=== PATIENT | female | born 1970 | race Caucasian/White ===

== ENCOUNTER → 2022-02-19 | Outpatient (CLI) | payer OTHER ==
[~2022-02-19] MED LIST: ADDERALL XR20 MG PO; ALDACTONE 100M100 MG PO; ATIVAN0.5 MG PO; BIOTIN1 MG PO; CYCLOBENZ5 MG PO; MULTIVITAMIN FO1 CAP PO; OMEGA 31000 MG PO; VITAMIN B COMPL1 SGL PO
== END ==
LOC: MHCPAIN 15:34
DX: M54.16 Radiculopathy, lumbar region (principal); M53.3 Sacrococcygeal disorders, not elsewhere classified; M51.26 Other intervertebral disc displacement, lumbar region; M65.312 Trigger thumb, left thumb
CPT/HCPCS: G0463

== ENCOUNTER → 2022-07-30 | Outpatient (CLI) | payer OTHER | LOC: MHCPAIN 16:01 | DX: M51.36 Other intervertebral disc degeneration, lumbar region (principal); M53.3 Sacrococcygeal disorders, not elsewhere classified; M54.50 Low back pain, unspecified | CPT/HCPCS: G0463 ==